=== PATIENT | male | born 1950 | race African-American/Black ===

== ENCOUNTER 2018-10-12 14:03 | Inpatient (IN) | payer MEDICARE ==
[~2018-10-12] VITALS: Ht 175.3 cm; Wt 68.6 kg
--- NOTE | ~2018-10-12 | HEMODYNAMI ---
PATIENT:NIESHA JOSUE MEDICAL RECORD: [id number] : 54 LOCATION:[facility] ADMISSION DATE: 10/12/18 Generatedon:10/12/201815:23 Patient name: NIESHA JOSUE Patient #: [id number] SSN: : 1950 Date of study: 10/12/2018 Page: Of Hemodynamic Procedure Report Patient Data Patient Demographics Procedure consent was obtained First Name: NIESHA Gender: Male Last Name: LIAT : 1950 Patient #: [id number] Age: 68 year(s) Race: Black Additional ID: [id number] Contact details [address]: [address] [place] [address] State: [place] City: [place] Zip code: [address] Admission Admission Data Admission Date: 10/12/2018 Admission Time: 14:03 Procedure Procedure Types Cath Procedure Diagnostic Procedure LHC LHC w/Coronaries PCI Procedure Coronary Stent Coronary Stent Initial Procedure Description Procedure Date Procedure Date: 10/12/2018 Procedure Start Time: 15:05 Procedure End Time: 15:20 Procedure Staff Name Function Foster Dawson MD Performing Physician Esdras Awad RT Monitor Ez Howell RN Nurse Giaan Em RT Scrub Procedure Data Cath Procedure Fluoroscopy Diagnostic fluoroscopy Total fluoroscopy Time: 3.9 time: 3.9 min min Diagnostic fluoroscopy Total fluoroscopy dose: 581 dose: 581 mGy mGy Contrast Material Contrast Material Type Amount (ml) Isovue 300 70 Entry Location Entry Primary Successful Side Size Upsize Upsize Entry Closure Succes sful Closure Location (Fr) 1 (Fr) 2 (Fr) Remarks Device Remarks Femoral Right 5 Fr 6 Fr Exoseal artery Short Diagnostic catheters Device Type Used For End Catheter Placement MULTIPACK JL 4.0 5Fr Left Coronary catheter Angiography MULTIPACK 3DRC 5Fr Right Coronary catheter Angiography MULTIPACK Pigtail 5 Fr LV Angiography catheter Procedure Complications No complications Procedure Medications Medication Administration Route Dosage 0.9% NaCl I.V. 100 ml/hr Oxygen NC 2 l/min Heparin Flush Bag added to field 2 bags (1000units/500ml NS) Lidocaine 2% added to field 20 Versed I.V. 1 mg Fentanyl I.V. 50 mcg Heparin Bolus I.V. 5000 units Integrilin (Bolus I.V. 6.2 ml 2mg/ml) Integrilin (Bolus wasted 3.8 ml 2mg/ml) Plavix P.O. 600 mg Hemodynamics Rest Heart Rate: 49 (bpm) Pressure Samples Time Site Value (mmHg) Purpose Heart Use Rate(bpm) 15:18 LV 89/0,4 EDP 57 15:19 AO 111/58(77) Pullback 57 15:19 LV 89/2,6 Pullback 57 Gradients Valve Time Site 1 Site 2 Mean SEP/DFP Peak To Heart Use (mmHg) (sec/min) Peak Rate (mmHg) (bpm) Aortic 15:19 LV AO 0 2 0 57 89/2,6 111/58(77) Calculations Valve P-P Mean Valve Index Valve Source Name Gradient Area Flow (cm2) Aortic 0 0 0 0 Snapshots Pre Cath Intra NCS Post Cath Vital Signs Time Heart Resp SPO2 etCO2 NIBP (mmHg) Rhythm Pain Sedation Rate (ipm) (%) (mmHg) Status Level (bpm) 14:51:07 62 16 100 0 172/112(132) NSR 7 (11) 10(A) , Very intense 14:55:26 60 13 100 0 164/108(130) NSR 7 (11) 10(A) , Very intense 14:59:45 58 23 100 0 126/79(102) NSR 7 (11) 10(A) , Very intense 15:03:55 56 26 99 0 115/72(86) NSR 0 (11) 10(A) , No pain 15:07:59 55 12 99 0 120/74(87) NSR 0 (11) 10(A) , No pain 15:12:09 56 12 98 0 113/67(100) NSR 0 (11) 9(A) , No pain 15:16:17 56 13 99 0 103/61(87) NSR 0 (11) 9(A) , No pain 15:20:16 60 11 98 0 113/75(85) NSR 0 (11) 10(A) , No pain Medications Time Medication Route Dose Verified Delivered Reason Notes Effectiveness by by 14:53:42 0.9% NaCl I.V. 100 Ez Ez Per physician ml/hr Lynda Howell RN RN 14:53:52 Oxygen NC 2 Ez Ez for low 02 sats l/min Lynda Howell RN RN 14:54:01 Heparin Flush added 2 Ez Ez used for Bag to bags Lynda Howell procedure (1000units/500ml field RN RN NS) 14:54:11 Lidocaine 2% added 20ml Ez Ez for local to vial Lynda Howell anesthetic field RN RN 15:01:50 Versed I.V. 1 mg Ez Ez for sedation Lynda Howell RN RN 15:01:59 Fentanyl I.V. 50 Ez Ez for sedation mcg Lynda Howell RN RN 15:11:27 Heparin Bolus I.V. 5000 Ez Ez for units Lynda Howell anticoagulation RN RN 15:11:44 Integrilin I.V. 6.2 Ez Ez for (Bolus 2mg/ml) ml Lynda Howell antiplatelet RN RN therapy 15:11:57 Integrilin wasted 3.8 Ez Ez to sharp's (Bolus 2mg/ml) ml Lynda Howell RN RN 15:21:43 Plavix P.O. 600 Ez Ez for mg Lynda Howell antiplatelet RN RN therapy Procedure Log Time Note 14:23:17 Esdras Awad RT(R) sent for patient. Start room use. 14:23:18 Time tracking: Regular hours (M-F 7:00 - 5:00) 14:23:23 Plan of Care:Hemodynamics will remain stable., Cardiac rhythm will remain stable., Comfort level will be maintained., Respiratory function will remain adequate., Patient/ family verbilizes understanding of procedure., Procedure tolerated without complication., Recovers from procedure without complications.. 14:42:49 Patient received from ED to CCL 2 Alert and oriented. Tansferred to table in Supine position. 14:42:50 Warm blankets applied, and geovanna hugger turned on for patient comfort. 14:42:50 Correct patient and procedure confirmed by team. 14:42:51 Signed procedure consent form obtained from patient. 14:42:52 ECG and BP/O2 sat monitors applied to patient. 14:42:53 Full Disclosure recording started 14:50:02 Vital chart was started 14:52:46 Baseline sample Acquired. 14:53:04 Rhythm: sinus rhythm 14:53:42 0.9% NaCl 100 ml/hr I.V. was administered by Ez Howell RN; Per physician; 14:53:52 Oxygen 2 l/min NC was administered by Ez Howell RN; for low 02 sats; 14:54:01 Heparin Flush Bag (1000units/500ml NS) 2 bags added to field was administered by Ez Howell RN; used for procedure; 14:54:02 H&P Date Dictated: 10/12/2018 Within 30 days and on chart.. 14:54:04 Pre-procedure instructions explained to patient. 14:54:05 Pre-op teaching completed and patient verbalized understanding. 14:54:11 Lidocaine 2% 20ml vial added to field was administered by Ez Howell RN; for local anesthetic; 14:54:22 Family in waiting room. 14:54:32 Patient NPO since Midnight. 14:55:54 Is the patient allergic to Iodine/contrast media? No. 14:55:57 Is patient on blood thinner?Yes 14:56:00 ACC The patient was administered the following blood thiners within the last 24 hours: ACCLovenox 14:56:03 Patient diabetic? No. 14:56:03 ----Pre-sedation anethsthesia assessment.---- 14:56:06 Previous problem with sedation/anesthesia? No ? 14:56:07 Snore? No 14:56:08 Sleep apnea? No 14:56:09 Deviated septum? No 14:56:11 Opens mouth fully? Yes 14:56:12 Sticks out tongue? Yes 14:56:14 Airway obstruction? No ? 14:56:16 Dentures? No ? 14:56:19 Pre procedure: right dorsailis pedis pulse 2+ Normal; easily identifiable; not easily obliterated 14:56:22 Patient pain scale 0/10 ?. 14:56:28 IV patent on arrival in right antecubital with 0.9% NaCl at 10ml/hr. 14:56:40 Lab results pending. 14:56:43 Right groin area was prepped with chlora-prep and draped in sterile fashion 14:56:43 Alarms reviewed by Efren N. 14:56:44 Sharps counted by scrub and verified by ROctavio 14:56:45 Physician arrived 14:56:45 --------ALL STOP TIME OUT------ 14:56:46 Final Timeout: patient, procedure, and site verified with staff and physician. All members of the team are in agreement. 14:56:48 Right groin site verified by team. 14:56:53 Fire Safety Assessment: A--An alcohol-based skin anteseptic being used preoperatively., C--Open oxygen or nitrous oxide is being used., D--An ESU, laser, or fiber-optic light is being used. 14:56:55 Physical assessment completed. ASA score P 2 - A patient with mild systemic disease as per Foster Dawson MD. 14:56:59 Sedation plan: IV Moderate Sedation Medication:Versed, Fentanyl 15:01:50 Versed 1 mg I.V. was administered by Ez Howell RN; for sedation; 15:01:59 Fentanyl 50 mcg I.V. was administered by Ez Howell RN; for sedation; 15:04:36 Zero performed for pressure channel P1 15:04:42 Use device set Femoral Dx 15:04:43 ACIST Syringe (02799) opened to sterile field. 15:04:43 Bag Decanter (2002) opened to sterile field. 15:04:44 Medline Cath Pack ([id number]) opened to sterile field. 15:04:44 DIAGNOSTIC WIRE .035 260cm J wire (395493) opened to sterile field. 15:04:46 ACIST Hand Control (65960) opened to sterile field. 15:04:46 ACIST Manifold (95815) opened to sterile field. 15:04:47 DIAGNOSTIC Multipack 5Fr catheter set (RY3318) opened to sterile field. 15:04:48 Tegaderm 4 x 4 (1626W) opened to sterile field. 15:04:49 SHEATH 5FR Okay (TQC008) opened to sterile field. 15:04:52 Procedure started. 15:05:02 Local anesthetic to right femoral artery with Lidocaine 2% by Foster Dawson MD.INITIAL ACCESS ONLY 15:05:10 A 5 Fr sheath was inserted into the Right Femoral artery 15:06:24 A MULTIPACK JL 4.0 5Fr catheter was advanced over the wire and used for Left Coronary Angiography. 15:06:32 LCA angiography performed. 15:07:43 Catheter removed. 15:07:58 A MULTIPACK 3DRC 5Fr catheter was advanced over the wire and used for Right Coronary Angiography. 15:08:08 RCA angiography performed. 15:08:10 Catheter removed. 15:08:27 SHEATH 6FR Okay (QIS275) opened to sterile field. 15:08:41 Sheath upsized to a 6 Fr Short. 15:10:18 INFLATOR Merit BasixCompak (KD2496) opened to sterile field. 15:10:19 WHISPER 300cm guide wire ([id number]) opened to sterile field. 15:10:20 GUIDE 6FR JL 4.0 catheter (ED4DV25) opened to sterile field. 15:11:26 6 Fr JL 4 guide catheter was inserted over the wire 15:11:27 Heparin Bolus 5000 units I.V. was administered by Ez Howell RN; for anticoagulation; 15:11:30 WHISPER wire advanced. 15:11:44 Integrilin (Bolus 2mg/ml) 6.2 ml I.V. was administered by Ez Howell RN; for antiplatelet therapy; 15:11:57 Integrilin (Bolus 2mg/ml) 3.8 ml wasted was administered by Ez Howell RN; to sharp's; 15:12:50 Inflate balloon Inflation number: 1 A EMERGE OTW 3.0 x 15 balloon ([id number]) was prepped and advanced across the Prox CX, then inflated to 8 NAOMI for 0:45 (min:sec). 15:13:50 Balloon removed over the wire. 15:16:51 Place stent Inflation Number: 2 A CEFERINO OTW 3.0 x 18 stent ([id number]) was prepped and advanced across the Prox CX. The stent was deployed at 14 NAOMI for 0:45 (min:sec). 15:17:18 Stent catheter was removed intact over wire. 15:17:19 Wire removed. 15:17:19 Guide catheter removed. 15:17:36 A MULTIPACK Pigtail 5 Fr catheter was advanced over the wire and used for LV Angiography. 15:17:44 Procedure type changed to Cath procedure, Diagnostic procedure, LHC, LHC w/Coronaries, PCI procedure, Coronary Stent, Coronary Stent Initial 15:17:52 LV angiography performed. 15:17:55 LV gram done using PA 15:17:56 LV hemodynamics recorded. 15:18:02 Injector settings: Ml/sec: 10, Volume: 20, 15:19:06 EF : 50 % 15:19:13 Catheter removed. 15:19:21 Contrast amount:Isovue 300 70ml. 15:19:27 Sheath removed intact; hemostasis achieved with Exoseal to the Right Femoral artery. 15:19:34 EXOSEAL 6Fr (EX600) opened to sterile field. 15:19:37 Procedure ended.(Physican Out) 15:19:50 Fluoroscopy time 03.90 minutes. 15:19:56 Fluoroscopy dose: 581 mGy 15:19:56 Flurop Dose total: 581 15:19:58 Sharps counted by scrub and verified by R.N. 15:19:59 Insertion/operative site no bleeding no hematoma. 15:20:02 Post-op/insertion site Right Femoral artery dressed using a 4 x 4 and Tegaderm. 15:20:04 Post right femoral artery:stable 15:20:06 Post Procedure Pulses reassessed and unchanged 15:20:08 Post procedure: right dorsailis pedis pulse 1+ Palpable, but thready & weak; easily obliterated. 15:20:11 Post procedure rhythm: sinus rhythm 15:20:12 Post procedure instruction explained to patient.Patient verbalizes understanding. 15:20:13 Procedure and supply charges have been captured, reviewed, submitted and are correct. 15:20:26 Procedure Complication : No complications 15:20:28 Vital chart was stopped 15:20:29 See physician's report for complete and final results. 15:20:33 Report given to PCU. 15:20:36 Patient transfered to PCU with Bed. 15:20:38 Procedure ended. 15:20:38 Full Disclosure recording stopped 15:20:45 ACC-PCI Only Patient was given prescriptions, or instructed by Foster Dawson MD to start/continue the following medications upon discharge: Plavix 15:20:47 End room use (Document Last) 15:21:43 Plavix 600 mg P.O. was administered by Ez Howell RN; for antiplatelet therapy; Intervention Summary Intervention Notes Time ActionType Lesion and Equipment Action# Pressure Duration Attributes Used 15:12:50 Inflate Prox CX EMERGE OTW 1 8 00:45 balloon 3.0 x 15 balloon ([id number]) 15:16:51 Place stent Prox CX CEFERINO OTW 3.0 2 14 00:45 x 18 stent ([id number]) Device Usage Item Name Manufacture Quantity Catalog Number Hospital Part Current M inimal Lot# / Charge Number Stock Stock Serial# Code ACIST Syringe Acist 1 08086 639825 451014 992421 2 0 (03923) Medical Systems Inc Bag Decanter Microtek 1 583918 89516 802350 5 () Medical Inc. Medline Cath Medline 1 [id number] 325371 72020 560438 5 Pack ([id number]) DIAGNOSTIC St Jorge 1 415928 399621 868638 917543 3 0 WIRE .035 260cm J wire (493894) ACIST Hand Acist 1 91679 110670 515315 912274 5 Control Medical (37425) Systems Inc ACIST Acist 1 25950 729243 566997 090977 5 Manifold Medical (56267) Systems Inc DIAGNOSTIC Cardinal 1 RB1127 786345 55613 878136 3 0 Multipack 5Fr Health catheter set (XF6473) Tegaderm 4 x 3M 1 1626W 270125 779342 677887 5 4 (1626W) SHEATH 5FR Terumo 1 SST133 115810 675467 114596 5 Okay (EUO931) MULTIPACK JL Cardinal 1 109635 5 4.0 5Fr Health catheter MULTIPACK Cardinal 1 807485 5 3DRC 5Fr Health catheter SHEATH 6FR Terumo 1 VBS148 106287 167453 769164 4 0 Okay (TLB475) INFLATOR Merit 1 PE6834 101607 353751 449610 1 5 [employer] Medical BasixCompak (DO6599) WHISPER 300cm Ochoa 1 [id number] 827595 393629 739189 5 guide wire Vascular (5632596TG) GUIDE 6FR JL Medtronic 1 [id number] 528489 97150 273350 1 4.0 catheter (JJ0ZO99) EMERGE OTW Kersey 1 [id number] 181603 839275 455998 5 [id number] 3.0 x 15 Scientific balloon ([id number]) CEFERINO OTW 3.0 Medtronic 1 [id number] 873092 0273883 257816 5 [id number] x 18 stent ([id number]) MULTIPACK Cardinal 1 618886 5 Pigtail 5 Fr Health catheter EXOSEAL 6Fr Cardinal 1 EX600 415217 336427 477078 1 0 (EX600) Health Signature Audit [place] Stage Time Signature Unsigned Intra-Procedure 10/12/2018 Esdras Awad RT(R) 3:23:33 PM Signatures Monitor : Esdras Awad RT Signature : Date : Time : [id number] [place] [address]
--- NOTE | ~2018-10-12 | DS ---
PATIENT:NIESHA JOSUE :54 MEDICAL RECORD: [id number] DISCHARGE SUMMARY ADMISSION DATE: 10/12/18 DISCHARGE DATE: DATE OF ADMISSION: 10/12/2018. DATE OF DISCHARGE: 10/13/2018. DIAGNOSES: 1. Acute myocardial infarction. 2. Hypertension. BRIEF HOSPITAL COURSE: The patient was transferred from [place] with acute myocardial infarction, was found to have totally occluded circumflex and underwent intervention. EF was well preserved on angiography. He was started on Plavix. Continued on beta blockade. Statin was added to his medical therapy. He will be seen back in the office in 1 month. ACTIVITIES: As tolerated. DIET: AHA diet. TRANSINT:[id number] Voice Confirmation ID: [id number] DOCUMENT ID: [id number] SILVIA MEDINA MD CC: [id number] DICTATION DATE: 10/13/18 1205 ANIMAL CARE SERVICE WORKER: 10/13/18 1214 ADM IN [place] [place] [address]
[2018-10-12] MEDS ORDERED: COREG12.5 MG PO (14:06)
[2018-10-12] MEDS ORDERED: CATAPRES0.1 MG PO (14:06)
[2018-10-12] MEDS ORDERED: HYDROCODON-ACE1 EA10 PO (14:07)
[2018-10-12] MEDS ORDERED: HYDRALAZINE HCL25 MG PO (14:07)
[2018-10-12] MEDS ORDERED: CYCLOBENZAPRINE10 MG PO (14:07)
[2018-10-12] MEDS ORDERED: ZANTAC300 MG PO (14:07)
[2018-10-12 14:49] LABS: BASOPHILS 0.4 % (0-2); EOSINOPHILS 1.2 % (0-7); HEMATOCRIT 38.2 % (42.0-54.0); HEMOGLOBIN 12.4 g/dL (13.5-17.5); IMMATURE GRANULOCYTES 0.2 % (0-5); LYMPHOCYTES 25.8 % (15-50); MCH 23.9 pg (26.0-34.0); MCHC 32.5 g/dL (31.0-37.0); MCV 73.6 fL (80.0-100.0); MEAN PLATELET VOLUME 10.8 fL (7.4-10.4); NEUTROPHILS 58.4 % (40-80); PLATELET COUNT 276 10x3/uL (130-400); RBC 5.19 10x6/uL (4.20-6.10); RDW 13.4 % (11.5-14.5); WBC 5.1 10x3/uL (4.8-10.8)
[2018-10-12 15:04] LABS: ANION GAP 8.1 mmol/L (8-16); CALCIUM 8.2 mg/dL (8.5-10.1); CARBON DIOXIDE 30.2 mmol/L (21.0-32.0); CREATININE - SERUM 1.2 mg/dL (0.6-1.3); POTASSIUM - SERUM 4.3 mmol/L (3.5-5.1)
[2018-10-12 15:17] LABS: CKMB 271.1 U/L (0.0-3.6)
[2018-10-12 15:18] LABS: CREATINE KINASE 2238 UL (21-232)
[2018-10-12 15:19] LABS: TROPONIN-I 30.801 ng/mL (0.000-0.060)
--- NOTE | 2018-10-12 15:50 | NUR ---
RECEIVED PT IN BED FROM MATERIALS PLANNER/PRODUCTION PLANNER VSS RESP UNLABORED O2 ON 2 LPM NC RT GROIN W/FEMSTOP IN PLACE PPPX4 PT IS AAOX4 NAD NOTED WILL CONTINUE TO MONITOR
[2018-10-12 15:59] VITALS: BP 125/69; Ht 175.3 cm; Wt 68.6 kg
--- NOTE | 2018-10-12 19:42 | NUR ---
RESUMED CARE OF PT, LYING IN BED RESPIRATIONS EVEN AND UNLABORED ON ROOM AIR. RIGHT AC INFUSING NS @ 100. RIGHT GROIN FEMSTOP RELEASED, PEDAL PULSE PALPABLE. 55 SB ON TELEMETRY. CALL LIGHT IN REACH. SEE NURSE ASSESSMENT.
[2018-10-12 20:00] VITALS: BP 149/87
[2018-10-13] VITALS: BP 142/84
[2018-10-13 04:00] VITALS: BP 139/85
--- NOTE | 2018-10-13 07:30 | NUR ---
RECEIVED PT IN BED AAOX4 RESP UNLABORED TELEMETRY INTACT SR 62 NAD NOTED
[2018-10-13 08:13] VITALS: BP 147/89
--- NOTE | 2018-10-13 08:29 | OP ---
PATIENT NAME: NIESHA JOSUE MEDICAL RECORD: [id number] :[birth year] LOCATION:D.M2 D.2115 ADMISSION DATE:10/12/18 SURGEON: SILVIA MEDINA MD DATE OF OPERATION: 10/12/2018 PROCEDURES: Left heart catheterization, selective coronary angiography, post-TIMBER HEWER stenting of the circumflex, right femoral artery approach. CATHETERS: A 5-Vincentian sheath, 5/4 left and right Julien, 5/4 pig. The procedure was well tolerated. We proceeded immediately to stenting of the circumflex. FINDINGS: Left ventriculography in 30-degree PA view, mild anterolateral hypokinesis. Overall, however, LV function is probably just at the lower limits of normal at 50%. CORONARY ANATOMY: LEFT MAIN: Left main is free of disease. LAD: Free of disease in the diagonal system. CIRCUMFLEX: Totally occluded in its proximal portion. RIGHT CORONARY ARTERY: No significant stenosis. IMPRESSION: Acute myocardial infarction secondary to occlusion of circumflex and intervention momentarily. DESCRIPTION OF THE PROCEDURE: A 5-Vincentian sheath was exchanged for a 6-Vincentian sheath. JL4 catheter provided good guide catheter support followed by 300 cm Whisper wire placed across the totally occluded circumflex, at the distal portion of the vessel. Pre-deployment balloon was 3.[address] [facility] and this showed orthodoxy of MYRIAM flow from 0 to 2. Next, 3.0 x 18 mm Ayo drug eluting stent was placed up to 16 atmospheres and it showed an excellent resolution of 100% stenosis with no significant residual. MYRIAM flow improved to 3 at this point. Sheath closed with ExoSeal device. Plavix was loaded in the lab. TRANSINT:[id number] Voice Confirmation ID: [id number] DOCUMENT ID: [id number] SILVIA MEDINA MD at 0829 CC: [id number] DICTATION DATE: 10/12/18 1532 TUG BOAT CAPTAIN: 10/12/18 2353 ADM IN [place] [address] [place] [address]
--- NOTE | 2018-10-13 10:12 | MORECARE ---
CASE MANAGEMENT DISCHARGE SUMMARY PATIENT: NIESHA JOSUE UNIT: [id number] ADM DATE: 10/12/18 AGE: 68 : 52 SEX: M ROOM/BED: D.2115 AUTHOR: JEREL CALHOUN PHYSICIAN: REFERRING PHYSICIAN: SILVIA MEDINA MD DATE OF SERVICE: 10/13/18 Discharge Plan Patient Name: [facility]IESHA [facility]OSUE [facility] [facility] 1950 Planned Disposition: Anticipated Discharge Date: 10/13/18 Discharge Date: Expected LOS: 1 Initial Reviewer: [email or web address] Initial Review Date: 10/13/2018 Generated: 10/13/18 11:12 am Patient Name: NIESHA JOSUE Page 85290 at 1012 All edits/amendments must be made on the electronic document DICTATION DATE: 10/13/18 1012 UNHAIRING INSPECTOR: KRISTINA 10/13/18 1012 RPT#: [id number] DC DATE: STATUS: ADM IN [facility] [address] [place] [address] END OF REPORT
--- NOTE | 2018-10-13 10:36 | MORECARE ---
CASE MANAGEMENT DISCHARGE SUMMARY PATIENT: NIESHA JOSUE UNIT: [id number] ADM DATE: 10/12/18 AGE: 68 : 52 SEX: M ROOM/BED: D.2115 AUTHOR: JEREL CALHOUN PHYSICIAN: REFERRING PHYSICIAN: SILVIA MEDINA MD DATE OF SERVICE: 10/13/18 Discharge Plan Patient Name: NIESHA JOSUE Facility: [facility]:[place] : 1950 Planned Disposition: Anticipated Discharge Date: 10/13/18 Discharge Date: Expected LOS: 1 Initial Reviewer: [email or web address] Initial Review Date: 10/13/2018 Generated: 10/13/18 11:36 am Comments DCP- Discharge Planning Updated by [email or web address]: Brielle Gomes on 10/13/18 9:[address] Patient Name: NIESHA JOSUE Admission Status: ER Accout number: [id number] Admission Date: 10-12-2018 : 1950 Admission Diagnosis: Attending: SILVIA MEDINA Current LOS: 1 Anticipated DC Date: 10-13-2018 Planned Disposition: Primary Insurance: MEDICARE A & B Discharge Planning Comments: CM MET WITH PATIENT IN ROOM TO DISCUSS DISCHARGE PLANNING NEEDS. PATIENT RESIDES AT HOME ALONE AND DENIES ANY NEEDS PRIOR TO RETURNING HOME. HE HAS A SINGLE LEG CANE, BUT ONLY USES IT SOMETIMES. HE STATED THAT HIS DAUGHTER ALANA WILL DRIVE HIM HOME AND HAS REQUESTED THAT I CALL HER BECAUSE HE CANNOT CALL HER FROM THE ROOM. I CALLED AND SPOKE WITH HER PER HIS REQUEST ([phone]), AND EXPLAINED THAT HER DAD WAS DISCHARGING HOME AND HE HAS ASKED ME TO CALL HER FOR TRANSPORT. SHE STATED THAT SHE WILL BE HERE TO GET HIM, BUT SHE HAS A DENTAL APPOINTMENT IN [place] @ 1417 AND WILL NOT BE ABLE TO COME UNTIL AFTER THAT. THIS INFORMATION HAS BEEN GIVEN TO THE ANDROID IOS DEVELOPER AND RELAYED TO THE PATIENT. I HAVE ENCOURAGED HIM TO CALL IF HE WERE TO THINK OF ANY NEEDS BEFORE HE LEAVES. I HAVE LEFT MY CARD WITH MY DIRECT NUMBER. Environmental Protection Geologist: Brielle Gomes RN Appended by Brielle Gomes on 10/13/2018 10:34 CDT: EMAIL SENT TO JAY OLGUIN AND SATINDER GRAHAM IN REGARDS TO CORRECTING THE PATIENTS SS# ON HIS FACESHEET. DCPIA - Discharge Planning Initial Assessment Updated by [email or web address]: Brielle Gomes on 10/13/18 10:29 am * Is the patient Alert and Oriented? Yes * How many steps to enter\exit or inside your home? 2, 0 RAILS * PCP DR SANDERS * Pharmacy [facility] * Preadmission Environment Home Alone * ADLs Independent * Equipment Cane * List name and contact numbers for known caregivers / representatives who currently or will assist patient after discharge: BARBIE SNEED, SISTER, ALANA, DAUGHTER, * Verbal permission to speak to the caregivers and representatives has been obtained from the patient. Yes * Community resources currently utilized None * Additional services required to return to the preadmission environment? No * Can the patient safely return to the preadmission environment? Yes * Has this patient been hospitalized within the prior 30 days at any hospital? No Last DP export: 10/13/18 9:12 a Patient Name: NIESHA JOSUE Page 78005 at 1036 All edits/amendments must be made on the electronic document DICTATION DATE: 10/13/[address] WORKER: KRISTINA 10/13/18 1035 RPT#: [id number] DC DATE: STATUS: ADM IN [facility] [address] [place] [address] END OF REPORT
[2018-10-13 11:05] VITALS: BP 152/78
--- NOTE | 2018-10-13 12:17 | HP ---
PATIENT: NIESHA JOSUE MEDICAL RECORD: [id number] ACCOUNT: [id number] LOCATION:[address] : [birth year] ADMISSION DATE: 10/12/18 PCP: No PCP HISTORY AND PHYSICAL EXAMINATION HISTORY OF PRESENT ILLNESS: A 68-year-old gentleman with history of hypertension who presented to the [place] ER with chest pressure and tightness consistent consistent with ongoing cardiac ischemia. He is found to have ST-T changes and elevated troponin. He was transferred here on an urgent basis. He is being brought to the lab for urgent visualization, revascularization will be undertaken as needed. PAST MEDICAL HISTORY: Includes history of hypertension. ALLERGIES: LOTREL. MEDICATIONS: Include clonidine 0.1 t.i.d., carvedilol 12.5 b.i.d., aspirin 81 every day. SOCIAL HISTORY: Lives in [place]. Smokes about a pack a day. PHYSICAL EXAMINATION: GENERAL: Pleasant, black gentleman in no acute distress, appears stated age. HEENT: Normocephalic, atraumatic. NECK: No JVD or bruit. HEART: Regular. A II/ systolic ejection murmur. LUNGS: Good air excursion. ABDOMEN: Soft, nontender. EXTREMITIES: Pulses are well preserved, 2+, with no edema. IMPRESSION: Ongoing cardiac ischemia, ST-T changes laterally. PLAN: We will plan for angiography, intervention as needed. TRANSINT:[id number] Voice Confirmation ID: [id number] DOCUMENT ID: [id number] SILVIA MEDINA MD at 1217 CC: [id number] DICTATION DATE: 10/12/18 1534 FOOD AND BEVERAGE SERVER: 10/12/18 1642 ADM IN [place] [place] [address]
[2018-10-13] MEDS ORDERED: PLAVIX75 MG PO (12:46)
[2018-10-13] MEDS ORDERED: ASPIRIN81 MG PO (12:47)
[2018-10-13] MEDS ORDERED: LIPITOR20 MG PO (12:47)
--- NOTE | 2018-10-13 17:38 | MORECARE ---
CASE MANAGEMENT DISCHARGE SUMMARY PATIENT: NIESHA JOSUE UNIT: [id number] ADM DATE: 10/12/18 AGE: 68 : 54 SEX: M ROOM/BED: D.2115 AUTHOR: JEREL CALHOUN PHYSICIAN: REFERRING PHYSICIAN: SILVIA MEDINA MD DATE OF SERVICE: 10/13/18 Discharge Plan Patient Name: NIESHA JOSUE Facility: [facility]:[place] : 1950 Planned Disposition: Home Anticipated Discharge Date: 10/13/18 Discharge Date: 10/13/2018 Expected LOS: 1 Initial Reviewer: [email or web address] Initial Review Date: 10/13/2018 Generated: 10/13/18 6:38 pm Comments DCP- Discharge Planning Updated by [email or web address]: Brielle Gomes on 10/13/18 9:[address] Patient Name: NIESHA JOSUE Admission Status: ER Accout number: [id number] Admission Date: 10-12-2018 : 1950 Admission Diagnosis: Attending: SILVIA MEDINA Current LOS: 1 Anticipated DC Date: 10-13-2018 Planned Disposition: Primary Insurance: MEDICARE A & B Discharge Planning Comments: CM MET WITH PATIENT IN ROOM TO DISCUSS DISCHARGE PLANNING NEEDS. PATIENT RESIDES AT HOME ALONE AND DENIES ANY NEEDS PRIOR TO RETURNING HOME. HE HAS A SINGLE LEG CANE, BUT ONLY USES IT SOMETIMES. HE STATED THAT HIS DAUGHTER ALANA WILL DRIVE HIM HOME AND HAS REQUESTED THAT I CALL HER BECAUSE HE CANNOT CALL HER FROM THE ROOM. I CALLED AND SPOKE WITH HER PER HIS REQUEST ([phone]), AND EXPLAINED THAT HER DAD WAS DISCHARGING HOME AND HE HAS ASKED ME TO CALL HER FOR TRANSPORT. SHE STATED THAT SHE WILL BE HERE TO GET HIM, BUT SHE HAS A DENTAL APPOINTMENT IN [place] @ 1419 AND WILL NOT BE ABLE TO COME UNTIL AFTER THAT. THIS INFORMATION HAS BEEN GIVEN TO THE LITHOPLATE MAKER AND RELAYED TO THE PATIENT. I HAVE ENCOURAGED HIM TO CALL IF HE WERE TO THINK OF ANY NEEDS BEFORE HE LEAVES. I HAVE LEFT MY CARD WITH MY DIRECT NUMBER. Deputy Head: Brielle Gomes RN Appended by Brielle Gomes on 10/13/2018 10:34 CDT: EMAIL SENT TO JAY OLGUIN AND SATINDER GRAHAM IN [place] TO CORRECTING THE PATIENTS SS# ON HIS FACESHEET. DCPIA - Discharge Planning Initial Assessment Updated by [email or web address]: Brielle Gomes on 10/13/18 10:29 am * Is the patient Alert and Oriented? Yes * How many steps to enter\exit or inside your home? 2, 0 RAILS * PCP DR SANDERS * Pharm[facility] * Preadmission Environment Home Alone * ADLs Independent * Equipment Cane * List name and contact numbers for known caregivers / representatives who currently or will assist patient after discharge: BARBIE SNEED, SISTER, ALANA, DAUGHTER, * Verbal permission to speak to the caregivers and representatives has been obtained from the patient. Yes * Community resources currently utilized None * Additional services required to return to the preadmission environment? No * Can the patient safely return to the preadmission environment? Yes * Has this patient been hospitalized within the prior 30 days at any hospital? No Last DP export: 10/13/18 9:36 a Patient Name: NIESHA JOSUE Page [id number] at 1738 All edits/amendments must be made on the electronic document DICTATION DATE: 10/13/181736 JUNIOR HIGH MATH TEACHER: KRISTINA 10/13/181736 RPT#: [id number] ME DATE:10/13/18 STATUS: DIS IN [facility] [address] [place] [address] END OF REPORT
== END 2018-10-13 14:15 | disposition home or self-care (01) | DRG 247 ==
LOC: D.CATH 14:03 → D.ER 14:03 → EDSTATUS 14:31 → D.M2 15:41
PROVIDERS: Family Medicine; ADMIT Internal Medicine Interventional Cardiology; ATTEND Internal Medicine Interventional Cardiology
PROC: B2111ZZ Fluoroscopy of Multiple Coronary Arteries using Low Osmolar Contrast (ICD-10-PCS; 2018-10-12)
PROC: B2151ZZ Fluoroscopy of Left Heart using Low Osmolar Contrast (ICD-10-PCS; 2018-10-12)
PROC: 027034Z Dilation of Coronary Artery, One Artery with Drug-eluting Intraluminal Device, Percutaneous Approach (ICD-10-PCS; principal; 2018-10-12 14:23)
PROC: 4A023N7 Measurement of Cardiac Sampling and Pressure, Left Heart, Percutaneous Approach (ICD-10-PCS; 2018-10-12 14:23)
DX: I21.4 Non-ST elevation (NSTEMI) myocardial infarction (principal); I25.10 Atherosclerotic heart disease of native coronary artery without angina pectoris; I10 Essential (primary) hypertension